=== PATIENT | female | born 1950 | race Caucasian/White ===

== ENCOUNTER 2019-03-30 12:28 | Outpatient (CLI) | payer MEDICARE, BC, OTHER ==
[~2019-03-30 12:28] MED LIST: CELE-193 PO; D3; ESSENTIAL ENZYMES; FISH OIL; LEVO175T2 PO; MAGN100T6; OSPE60TA2; PANT500T; PER10325T PO; VITAMIN B12; [UNRECOGNIZED DRUG - OTHER]; [UNRECOGNIZED DRUG - OTHER]; [UNRECOGNIZED DRUG - OTHER] TOP
[2019-03-30 13:57] LABS: HEMATOCRIT 39.9 % (35.0-45.0); HEMOGLOBIN 13.4 g/dl (12.0-16.0); MEAN CORPUSCULAR HEMOGLOBIN 30.4 PG (27.0-31.0); MEAN CORPUSCULAR HGB CONC 33.7 g/dL (33.0-36.5); MEAN CORPUSCULAR VOLUME 90.1 FL (78-98); MEAN PLATELET VOLUME 8.2 FL (7.4-10.4); PLATELET COUNT 257 X10'3 (140-440); RED BLOOD COUNT 4.42 X10'6 (4.20-5.60); RED CELL DISTRIBUTION WIDTH 14.1 % (11.5-14.5); WHITE BLOOD COUNT 6.6 X10'3 (4.5-11.0)
[2019-03-30 14:11] LABS: PARTIAL THROMBOPLASTIN TIME 27 SECONDS (22-32)
== END 2019-03-30 23:59 | disposition home or self-care (01) ==
LOC: LAB 12:28
PROVIDERS: ATTEND Family Medicine
DX: R58 Hemorrhage, not elsewhere classified (principal)
CPT/HCPCS: 36415; 85027; 85576; 85610; 85730

== ENCOUNTER 2021-04-05 15:14 | Emergency (ER) | payer MEDICARE, BC, OTHER ==
[~2021-04-05] VITALS: Ht 177.8 cm; Wt 100.0 kg
[2021-04-05 15:49] VITALS: BP 130/85
[2021-04-05] MEDS ORDERED: dexamethasone sod phosphate 10mg/ml inj IM STA (19:03)
[2021-04-05] MEDS ORDERED: dexamethasone sod phosphate 10mg/ml inj IV STA (19:12)
--- NOTE | 2021-04-05 19:34 | NUR ---
per MAGGY Holt and charge nurse karen hutchinson put IV in patient and patient can leave to [facility] with IV. Report given to charge at [facility].
== END 2021-04-05 19:36 | disposition left against medical advice (07) ==
LOC: ER 15:15
DX: S02.31XA Fracture of orbital floor, right side, initial encounter for closed fracture (principal); S60.212A Contusion of left wrist, initial encounter; S60.211A Contusion of right wrist, initial encounter; Z88.2 Allergy status to sulfonamides; Z88.8 Allergy status to other drugs, medicaments and biological substances; Z79.899 Other long term (current) drug therapy; W01.198A Fall on same level from slipping, tripping and stumbling with subsequent striking against other object, initial encounter; Z91.81 History of falling; Y93.89 Activity, other specified; Y92.89 Other specified places as the place of occurrence of the external cause; Y99.8 Other external cause status
CPT/HCPCS: 70450; 70486; 72125; 96374; 99285; J1100

== ENCOUNTER 2025-07-12 14:41 | Outpatient (CLI) | payer MEDICARE, BC ==
--- NOTE | 2025-07-13 09:16 | CONSULTATION ---
DATE OF CONSULTATION: 07/12/2025 DICTATING PHYSICIAN: Lenore Adams M.S., [facility]-IMPROVEMENT SPECIALIST MODIFIED BARIUM SWALLOW STUDY REPORT REFERRING PHYSICIAN: Sejal Orozco. HISTORY OF PRESENT ILLNESS: The patient is a 74-year-old female and consents to this evaluation. In history obtained from the patient and medical records, the patient reports that she has been having this sensation of food being stuck at her sternum when she is swallowing for the past couple of years. She reports that she was seen for endoscopy with no abnormalities. She also reports a chronic cough that could happen at any time during the day. The patient reports that this all started after she was sick with COVID. She was seen for a chest x-ray, which revealed an enlarged heart and bilateral markings in the lungs. She will be following up with a bakery manager regarding what was observed in her lungs. She also reports that she has hypothyroidism. CURRENT DIET: In terms of caffeine, the patient has transitioned to decaf coffee or mushroom coffee. She does not utilize tobacco products or drink alcohol. She consumes cheese 3 times weekly and chocolate 3 times weekly. MEDICATIONS: Celebrex 500 mg 1 capsule once daily orally, Flonase allergy relief 50 mcg/ACT nasal suspension, 2 sprays via nostrils, ProAir HFA 108 mcg/ACT, inhalation aerosol solution 1-2 puffs in 4-6 hours, Synthroid 150 mcg 1 tablet once daily orally, montelukast sodium 10 mg 1 tablet once daily orally, omeprazole 20 mg 1 capsule once daily orally, vitamin D 5000 IU 1 tablet once daily orally. PARAMETERS: The patient is seated in a lateral 90-degree view and administered the usual protocol of thin and nectar-thick liquids, puree and solid consistencies, as well as self-regulated boluses of thin liquids from the cup. RESULTS: In the oral stage of the swallow, lingual strength was within functional limits. Oral transit is characterized by reducing lingual palatal stripping secondary to reduced tongue base retraction, which is mild to moderately reduced, and so there is a mild to moderate oral residue on the base of tongue following the initial swallow of boluses. In the pharyngeal stage of the swallow, swallow initiation was within functional limits. Anterior movement of the posterior pharyngeal wall was observed. Elevation of the hyothyroid complex was accomplished with full range of motion for epiglottic inversion and anterior and superior movement of the hyoid. There is a mild to moderate pharyngeal residue residing at the vallecula and level of the PES opening after the tail of the bolus passes. PES opening is within functional limits. In terms of airway safety, it was noted that the patient demonstrated with penetration on the 3 mL nectar-thick liquid residue as well as the solid consistency. ANTERIOR-POSTERIOR VIEW: In the AP plane, the bolus split symmetrically between the piriform sinuses and there was proximal movement above the level of the clavicle. IMPRESSION: The patient demonstrates what appears to be a moderate pharyngoesophageal stage swallowing disorder characterized by mild to moderately reduced tongue base retraction, penetration of the 3 mL thick liquid and solid consistency, and proximal movement of the boluses above the level of the clavicle. DIAGNOSES: R13.14 dysphagia, pharyngoesophageal phase, T17.920A, food in respiratory tract causing asphyxiation. PATIENT EDUCATION: Immediately following modified barium swallow study, the patient and her were able to view the results. The normal anatomy of the swallowing mechanism was revealed. The patient was able to see how the current status of the swallowing mechanism decreases her ability to swallow normally. She was educated on a recommendation for speech therapy to strengthen the muscles involved in swallowing and declined to participate at this time as she reports she has a very busy schedule, but she was interested in learning something she could do at home and so she was educated on the effortful swallow exercise with written handout provided. The patient was also educated on dietary modifications for laryngopharyngeal reflux disease with written handout provided. RECOMMENDATIONS: * It is recommended that the patient complete the effortful swallow exercise to increase the strength of tongue base retraction. * It is recommended that the patient follow the aforementioned dietary modifications for laryngopharyngeal reflux disease. LONG-TERM GOALS: The patient will maintain adequate hydration/nutrition with optimum safety and efficiency of swallow function on p.o. intake without overt signs and symptoms of aspiration for the highest possible diet level. FUNCTIONAL ORAL INTAKE: The FOIS was administered to establish a change in the functional eating activities of this patient over time. This is a 7-point scale with 1 indicating no oral intake and totally tube dependent and 7 indicating total oral intake with no restrictions. This patient received a 6 which indicates total oral diet of multiple consistencies without special preparation but with specific food limitations and precautions. G-CODE: [id number]. Thank you very much for asking me to participate in the care of this kind patient. Should you have any questions regarding this evaluation or recommendations, please do not hesitate to contact me at [phone]. During this examination, 2.51 minutes of fluoroscopy time and 32.19 CAK mGy were utilized. Lenore Adams M.S., CCC-IMPROVEMENT SPECIALIST TID: [id number] RECEIPT: [id number] SC/ANISA FIELDSD
== END 2025-07-12 23:59 | disposition home or self-care (01) ==
LOC: RAD 14:41
PROVIDERS: ATTEND Family Medicine
DX: T17.920A Food in respiratory tract, part unspecified causing asphyxiation, initial encounter (principal); R13.14 Dysphagia, pharyngoesophageal phase; R05.3 Chronic cough; E03.9 Hypothyroidism, unspecified; Z79.1 Long term (current) use of non-steroidal anti-inflammatories (NSAID); Z79.899 Other long term (current) drug therapy; Z86.16 Personal history of COVID-19; W45.8XXA Other foreign body or object entering through skin, initial encounter; Y93.89 Activity, other specified; Y92.89 Other specified places as the place of occurrence of the external cause; Y99.8 Other external cause status
CPT/HCPCS: 74230